=== PATIENT | male | born 1955 | race Caucasian/White ===

== ENCOUNTER 2021-12-05 07:54 | Outpatient (CLI) | payer OTHER ==
[~2021-12-05 07:54] MED LIST: ANTIVERT25 M1 PO; ASPIR 8181 MG; IBUPROFEN800 MG PO; MECLIZINE HCL12.5 MG; ORPH100T PO; ZOCOR5 MG
== END 2021-12-05 07:55 | disposition home or self-care (01) ==
LOC: NUCLEAR 07:54
PROVIDERS: ATTEND Internal Medicine Cardiovascular Disease
DX: I20.1 Angina pectoris with documented spasm (principal); Z98.61 Coronary angioplasty status

== ENCOUNTER 2021-12-05 07:57 | Outpatient (CLI) | payer OTHER | END 2021-12-05 07:59 | disposition home or self-care (01) | LOC: LAB 07:57 | PROVIDERS: ATTEND Internal Medicine | DX: U07.1 COVID-19 (principal); B34.1 Enterovirus infection, unspecified ==